=== PATIENT | female | born 2000 ===

== ENCOUNTER 2020-12-23 04:12 | Emergency (ER) | payer OTHER ==
[~2020-12-23] VITALS: Ht 157.5 cm; Wt 68.2 kg
[2020-12-23 04:13] VITALS: TEMP 97.6
[2020-12-23 07:51] VITALS: BP 114/85; PULSE 95
== END 2020-12-23 07:52 | disposition home or self-care (01) ==
LOC: COL.ER 04:12
DX: F10.129 Alcohol abuse with intoxication, unspecified (principal)
CPT/HCPCS: J2405; J7030